=== PATIENT | male | born 1980 | race Caucasian/White ===

== ENCOUNTER 2016-09-28 10:00 | Emergency (ER) | payer SELFPAY ==
--- NOTE | 2016-09-28 10:26 | ER Document Report ---
HPI - HPI Pain Level: 5 Notes: Patient comes to the ED complaining of twisting injury to his right ankle that occurred yesterday. Since then he has been having lateral ankle pain and he has been unable to weight-bear. Patient states that he has been using ibuprofen and ice without any relief. The pain does not radiate. Staying off of his ankle helps with the pain. He has not noticed any obvious swelling or bruising. Denies any fever, chest pain, shortness breath, abdominal pain, dysuria, hematuria, muscle weakness/paralysis, or rash. Patient is a non- smoker. He does not take any meds daily. No medicine allergies. - CONSTITUTIONAL Notes: REVIEW OF SYSTEMS: CONSTITUTIONAL : Denies fever, chills, or sweats. Denies recent illness. CARDIOVASCULAR: Denies chest pain. Denies palpitations or racing or irregular heart beat. Denies ankle edema. RESPIRATORY: Denies cough, cold, or chest congestion. Denies shortness of breath, difficulty breathing, or wheezing. GASTROINTESTINAL: Denies abdominal pain or distention. Denies nausea, vomiting , or diarrhea. Denies blood in vomitus, stools, or per rectum. Denies black, tarry stools. Denies constipation. GENITOURINARY: Denies difficulty urinating, painful urination, burning, frequency, blood in urine, or discharge. MUSCULOSKELETAL: see hpi SKIN: Denies rash, lesions or sores. HEMATOLOGIC : Denies easy bruising or bleeding. NEUROLOGICAL: denies syncope/SALAZAR. ALL OTHER SYSTEMS REVIEWED AND NEGATIVE. Dictation was performed using [employer] voice recognition software - DERM Skin Color: Normal Past Medical History - Social History Smoking Status: Never Smoker Family History: Reviewed & Not Pertinent Patient has suicidal ideation: No Patient has homicidal ideation: No Renal/ Medical History: Denies: Hx Peritoneal Dialysis Past Surgical History: Reports: Hx Orthopedic Surgery - Left knee - Immunizations Hx Diphtheria, Pertussis, Tetanus Vaccination: Yes Vertical Provider Document - CONSTITUTIONAL Notes: PHYSICAL EXAMINATION: GENERAL: Well-appearing, well-nourished and in no acute distress. LUNGS: Breath sounds clear to auscultation bilaterally and equal. No wheezes rales or rhonchi. HEART: Regular rate and rhythm without murmurs, rubs, gallops. Musculoskeletal: (rt ankle): No obvious deformity, swelling, or ecchymosis noted. LROM to extension. Strength 4+/5 primarily due to discomfort. Ligamentous stable. + tenderness to palp of lateral malleolus/lateral ankle. Achilles intact. Caitlin neg. Extremities: No cyanosis, clubbing, or edema b/l. Peripheral pulses 2+. Capillary refill less than 3 seconds. NEUROLOGICAL: Normal sensory, motor exams PSYCH: Normal mood, normal affect. SKIN: Warm, Dry, normal turgor, no rashes or lesions noted. - INFECTION CONTROL TRAVEL OUTSIDE OF THE [place] IN LAST 30 DAYS: No - RESPIRATORY O2 Sat by Pulse Oximetry: 98 Course - Re-evaluation Re-evalutation: 09/28/16 12:11 Patient is an afebrile, well-hydrated, 36yo male who presents with the ED with a lateral rt ankle sprain based on H&P. XR unremarkable for any acute fx or dislocation. Toradol 15mg given IM today. Ankle stirrup placed. Crutches provided. Conservative measures for symptoms. Recheck with PCM in 2-3 days, consider consult with Ortho/Podiatry. Return to the ED with any worsening/ concerning symptoms as reviewed in discharge. Pt in agreement, but not happy he did not get a narcotic. Narcotics risks/benefits reviewed and advised that this injury does not warrant narcotics and NSAIDs with conservative measures will be the best thing for him. - Vital Signs Vital signs: Temp Pulse Resp BP Pulse Ox 97.4 F 97 20 140/93 H 98 09/28/16 10:09 09/28/16 10:09 09/28/16 10:09 09/28/16 10:09/28/16 10:09 Procedures - Immobilization Right Ankle Time completed: 12:00 Pre-Proc Neuro Vasc Exam: Normal Immobilizer type: Ankle stirrup Performed by: PCT Post-Proc Neuro Vasc Exam: Normal Discharge - Discharge Clinical Impression: Pain in lateral portion of right ankle Condition: Stable Disposition: HOME, SELF-CARE Instructions: Ankle Stirrup Splint ([facility]), Ice & Elevation ([facility]), Use of Crutches ([facility]), Sprained Ankle ([facility]) Additional Instructions: Rest, Ice, Compression, Elevation Use splint as directed Tylenol/ibuprofen as needed Light stretches daily Strength exercises as able Moist heat and massage may help F/u with your PCP in 2-3 days for a recheck Consider consult(s) with Orthopedics for ongoing/worsening symptoms Return to the ED with any worsening pain, swelling, numbness/tingling, muscle weakness, or development of fever, or any worsening symptoms that are concerning to you. Forms: Elevated Blood Pressure Referrals: [facility] [Provider Group] - Follow up as needed
--- NOTE | 2016-09-28 11:23 | RADIOLOGY REPORT (SQ) ---
EXAM DESCRIPTION: ANKLE RIGHT COMPLETE COMPLETED DATE/TIME: 09/28/2016 11:14 am REASON FOR STUDY: rt lateral ankle pain COMPARISON: None. NUMBER OF VIEWS: Three views. TECHNIQUE: AP, lateral, and oblique radiographic images acquired of the right ankle. LIMITATIONS: None. FINDINGS: MINERALIZATION: Normal. BONES: No acute fracture or dislocation. No worrisome bone lesions. JOINTS: Degenerative joint changes seen fibulotalar joint. SOFT TISSUES: There are calcifications about 2 cm below the tip of the fibula. OTHER: No other significant finding. IMPRESSION: 1. There is no acute abnormality. 2. There are lateral joint changes and calcifications suggesting prior injury. TECHNICAL DOCUMENTATION: JOB ID: [id number] [employer]- All Rights Reserved
[2016-09-28] MEDS ORDERED: KETOROLAC TROMETHAMINE INJ/PF 30 MG/1 ML SDV IM ONE (11:31)
[2016-09-28 11:50] VITALS: BP 132/72
== END 2016-09-28 11:53 | disposition home or self-care (01) ==
LOC: ER 10:00
DX: S93.401A Sprain of unspecified ligament of right ankle, initial encounter (principal); M25.571 Pain in right ankle and joints of right foot; X50.1XXA Overexertion from prolonged static or awkward postures, initial encounter
CPT/HCPCS: 99283; 96374; 73610; L1902; J1885

== ENCOUNTER 2018-03-19 18:03 | Emergency (ER) | payer SELFPAY ==
--- NOTE | 2018-03-19 18:51 | ER Document Report ---
ED Medical Screen (RME) - General Chief Complaint: Dizziness Stated Complaint: SHAKY/BLURRY VISION/HEADACHE Time Seen by Provider: 03/19/18 18:40 Mode of Arrival: Ambulatory Information source: Patient Notes: 37-year-old male presents with complaint of blurred vision, dizziness, shakiness and headache that have been ongoing for 1 week. Patient reports inability to sleep for several weeks. Denies any new medication, admits to stress secondary to the holidays. Does admit to occasional marijuana use. I have greeted and performed a rapid initial assessment of this patient. A comprehensive ED assessment and evaluation of the patient, analysis of test results and completion of medical decision making process we will be contacted by additional ED providers. PHYSICAL EXAMINATION: Vital signs reviewed-tachycardic, hypertensive GENERAL: Well-appearing, well-nourished and in no acute distress. LUNGS: No respiratory distress Musculoskeletal: Normal range of motion NEUROLOGICAL: Normal speech, normal gait. Alert and oriented x3 PSYCH: Normal mood, normal affect. SKIN: Warm, Dry, normal turgor, no rashes or lesions noted. TRAVEL OUTSIDE OF THE [place] IN LAST 30 DAYS: No - HPI Onset: Other Onset/Duration: Persistent Quality of pain: Throbbing Associated Symptoms: Dizzy/lightheaded, Headache Exacerbated by: Denies Relieved by: Denies Similar symptoms previously: No Recently seen / treated by doctor: No - Related Data Smoking: Non-smoker Frequency of alcohol use: None Drug Abuse: Marijuana Allergies/Adverse Reactions: No Known Allergies Allergy (Verified 03/19/18 18:26) Past Medical History Renal/ Medical History: Denies: Hx Peritoneal Dialysis Past Surgical History: Reports: Hx Orthopedic Surgery - Left knee - Immunizations Hx Diphtheria, Pertussis, Tetanus Vaccination: Yes Physical Exam - Vital signs Vitals: Temp Pulse Resp BP Pulse Ox 98.3 F 103 H 17 174/86 H 95 03/19/18 18:10 03/19/18 18:10 03/19/18 18:10 03/19/18 18:10 03/19/18 18:10 Course - Vital Signs Vital signs: Temp Pulse Resp BP Pulse Ox 98.3 F 103 H 17 174/86 H 95 03/19/18 18:10 03/19/18 18:10 03/19/18 18:10 03/19/18 18:10 03/19/18 18:10
[2018-03-19 19:11] LABS: ABSOLUTE BASOPHILS # (AUTO) 0.2 10^3/uL (0.0-0.2); ABSOLUTE EOSINOPHILS # (AUTO) 0.2 10^3/uL (0.0-0.6); ABSOLUTE LYMPHOCYTES (AUTO) 4.8 10^3/uL (0.5-4.7); ABSOLUTE MONOCYTES (AUTO) 1.5 10^3/uL (0.1-1.4); ABSOLUTE NEUT (AUTO) 8.3 10^3/uL (1.7-8.2); BASOPHILS % (AUTO) 1.1 % (0-2); EOSINOPHILS % (AUTO) 1.3 % (0-6); HEMATOCRIT 49.8 % (37.9-51.0); MEAN CORPUSCULAR HEMOGLOBIN 30.8 pg (27.0-33.4); MEAN CORPUSCULAR HGB CONC 34.2 g/dL (32.0-36.0); MEAN CORPUSCULAR VOLUME 90 fl (80-97); MONOCYTES % (AUTO) 9.9 % (3-13); PLATELET COUNT 383 10^3/uL (150-450); RED BLOOD COUNT 5.53 10^6/uL (4.35-5.55); RED CELL DISTRIBUTION WIDTH 13.5 % (11.5-14.0); SEGMENTED NEUTROPHILS % (AUTO) 55.7 % (42-78); TOTAL CELLS COUNTED % (AUTO) 100 %; WHITE BLOOD COUNT 14.9 10^3/uL (4.0-10.5)
[2018-03-19 19:21] LABS: APPEARANCE,URINE SLIGHTLY-CLOUDY; BILIRUBIN,URINE NEGATIVE (NEGATIVE); COLOR,URINE YELLOW; GLUCOSE, URINE NEGATIVE (NEGATIVE); KETONES,URINE NEGATIVE (NEGATIVE); LEUKOCYTE ESTERASE,URINE NEGATIVE (NEGATIVE); NITRITE,URINE NEGATIVE (NEGATIVE); PROTEIN,URINE NEGATIVE (NEGATIVE); URINE SPECIFIC GRAVITY 1.025
[2018-03-19] MEDS ORDERED: NORMAL SALINE 1000 ML 1,000 ML IV ONE (19:28)
[2018-03-19 19:30] LABS: URINE AMPHETAMINES SCREEN NEGATIVE; URINE BARBITURATES SCREEN NEGATIVE; URINE BENZODIAZEPINES SCREEN NEGATIVE; URINE COCAINE SCREEN NEGATIVE; URINE MARIJUANA (THC) SCREEN UNCONFIRMED POSITIVE; URINE METHADONE SCREEN NEGATIVE; URINE PHENCYCLIDINE SCREEN NEGATIVE
--- NOTE | 2018-03-19 19:31 | ER Document Report ---
ED General - General Chief Complaint: Dizziness Stated Complaint: SHAKY/BLURRY VISION/HEADACHE Time Seen by Provider: 03/19/18 18:40 Mode of Arrival: Ambulatory Information source: Patient Notes: This is a 37-year-old male with no medical problems who presents to the emergency with blurred vision, dizziness, shakiness and headache. Patient states he did have a GI illness last week with nausea, diarrhea, vomiting. He states that he has had dizziness and shakiness since then. He states that he got the headache starting yesterday. He denies any fever. He denies any photophobia. He states that the headache is actually gone right now. He does state that he has had difficulty sleeping for the past week. Patient states he is not been able to get good sleep the past 2 weeks: He states he has been under a lot of stress given the time of year. TRAVEL OUTSIDE OF THE [place] IN LAST 30 DAYS: No - HPI Onset: Last week Onset/Duration: Gradual Quality of pain: No pain Severity: None Pain Level: Denies Associated symptoms: denies: Chest pain, Fever, Shortness of breath Exacerbated by: Denies Relieved by: Denies Similar symptoms previously: No Recently seen / treated by doctor: No - Related Data Allergies/Adverse Reactions: No Known Allergies Allergy (Verified 03/19/18 18:26) Past Medical History - General Information source: Patient - Social History Smoking Status: Never Smoker Chew tobacco use (# tins/day): No Frequency of alcohol use: None Drug Abuse: Marijuana Family History: Reviewed & Not Pertinent Patient has suicidal ideation: No Patient has homicidal ideation: No Renal/ Medical History: Denies: Hx Peritoneal Dialysis Past Surgical History: Reports: Hx Orthopedic Surgery - Left knee - Immunizations Hx Diphtheria, Pertussis, Tetanus Vaccination: Yes Review of Systems - Review of Systems Constitutional: denies: Chills, Fever EENT: See HPI Cardiovascular: denies: Chest pain, Palpitations, Heart racing Respiratory: No symptoms reported Gastrointestinal: denies: Abdomen distended, Abdominal pain, Diarrhea Genitourinary: No symptoms reported Male Genitourinary: No symptoms reported Musculoskeletal: No symptoms reported Skin: No symptoms reported Hematologic/Lymphatic: No symptoms reported Neurological/Psychological: See HPI Physical Exam - Vital signs Vitals: Temp Pulse Resp BP Pulse Ox 98.3 F 103 H 17 174/86 H 95 03/19/18 18:10 03/19/18 18:10 03/19/18 18:10 03/19/18 18:10 03/19/18 18:10 Notes: Physical exam: GENERAL: Alert and oriented x3, no acute distress HEAD: Atraumatic, normocephalic. EYES: Pupils equal round and reactive to light, extraocular movements intact, sclera anicteric, conjunctiva are normal. ENT: TMs normal, nares patent, oropharynx clear without exudates. Moist mucous membranes. NECK: Normal range of motion, supple without obvious mass or JVD. She is neck is supple. LUNGS: Breath sounds clear to auscultation bilaterally and equal. No wheezes rales or rhonchi. HEART: Regular rate and rhythm without murmurs, rubs or gallops. ABDOMEN: Soft, normoactive bowel sounds. No tenderness to palpation. No guarding, no rebound. No masses appreciated. EXTREMITIES: Normal range of motion, no pitting or edema. No clubbing or cyanosis. NEUROLOGICAL: Cranial nerves II through XII grossly intact. She does have some horizontal nystagmus when looking to the left. Motor is 5/5, sensory is grossly intact, cerebellar (finger to nose) is good. Visual betancourt are normal. Patient denies diplopia. Normal speech, moving all extremities. There is no photophobia or neck stiffness. PSYCH: Normal mood, normal affect. SKIN: Warm, Dry, normal turgor, no rashes or lesions noted. - Notes Notes: Physical exam: GENERAL: he is alert and oriented x3, no acute distress HEAD: Atraumatic, normocephalic. EYES: Pupils equal round and reactive to light, extraocular movements intact, sclera anicteric, conjunctiva are normal. ENT: TMs normal, nares patent, oropharynx clear without exudates. Moist mucous membranes. NECK: Normal range of motion, supple without obvious mass or JVD. LUNGS: Breath sounds clear to auscultation bilaterally and equal. No wheezes rales or rhonchi. HEART: Regular rate and rhythm without murmurs, rubs or gallops. ABDOMEN: Soft, normoactive bowel sounds. No tenderness to palpation. No guarding, no rebound. No masses appreciated. EXTREMITIES: Normal range of motion, no pitting or edema. No clubbing or cyanosis. NEUROLOGICAL: Cranial nerves II through XII grossly intact. His visual betancourt are normal. He has slight horizontal nystagmus looking to the left. His motor is 5/5 upper and lower, sensory grossly intact, cerebellar (finger to nose) is good. normal speech, moving all extremities. PSYCH: Normal mood, normal affect. SKIN: Warm, Dry, normal turgor, no rashes or lesions noted. Course - Re-evaluation Re-evalutation: 03/19/18 23:23 The patient. He does state that he has been very stressed and is not sleeping well. He did have a GI issue a week ago with some diarrhea and some fever at that time. His white count is elevated tonight but there is no obvious signs of infection. I think a lot of his symptoms are from fatigue and lack of sleep. He was given IV fluids and repeat exam looks very good. I have talked to him about getting better sleep and following up with the [facility]. - Vital Signs Vital signs: Temp Pulse Resp BP Pulse Ox 98.5 F 70 16 141/94 H 96 03/19/18 23:39 03/19/18 23:39 03/19/18 23:39 03/19/18 23:39 03/19/18 23:39 - Laboratory Result Diagrams: 03/19/18 18:54 03/19/18 20:50 Laboratory results interpreted by me: 03/19/18 03/19/18 03/19/18 18:54 18:54 20:50 WBC 14.9 H Absolute Neutrophils 8.3 H Absolute Lymphocytes 4.8 H Absolute Monocytes 1.5 H Urine Urobilinogen 2.0 H Salicylates < 1.0 L Acetaminophen < 10 L - Diagnostic Test Radiology reviewed: Image reviewed, Reports reviewed - CT of the head shows no acute process. - EKG Interpretation by Me Rate: Normal Rhythm: NSR - EKG shows normal sinus rhythm with a ventricular rate of 64, no acute ST-T wave changes Discharge - Discharge Clinical Impression: Insomnia, Nystagmus, Pre-hypertension Condition: Stable Disposition: HOME, SELF-CARE Additional Instructions: As we discussed, the head CT look good today. There was no evidence of diabetes, your kidney function tests were good and your anemia studies were normal. I think your visual changes are from muscle fatigue because of lack of sleep. I want you to try using melatonin to see if it will help you go to sleep. Like you to follow-up with the medical clinic: [address] [phone] When you go: Bring a copy of today's lab tests with you. Prescriptions: Melatonin [Melatonin 1 mg Tablet] 1 mg PO QHS #14 tablet Forms: Elevated Blood Pressure
--- NOTE | 2018-03-19 20:42 | RADIOLOGY REPORT (SQ) ---
EXAM DESCRIPTION: CT HEAD WITHOUT COMPLETED DATE/TIME: 03/19/2018 8:30 pm REASON FOR STUDY: ham, dizziness COMPARISON: None. TECHNIQUE: Axial images acquired through the brain without intravenous contrast. Images reviewed wi th bone, brain and subdural windows. Additional sagittal and coronal reconstructions were generated. Images stored on PACS. All CT scanners at this facility use dose modulation, iterative reconstruction, and/or weight based d osing when appropriate to reduce radiation dose to as low as reasonably achievable (ALARA). [facility]: Dose Right [facility]: CareDose [facility]: Dose Right [facility]: Teradose 4D [facility]: Smart ARPU RADIATION DOSE: CT Rad equipment meets quality standard of care and radiation dose reduction techniq ues were employed. CTDIvol: 53.2 mGy. DLP: 937 mGy-cm. mGy. LIMITATIONS: None. FINDINGS: VENTRICLES: Normal size and contour. CEREBRUM: No masses. No hemorrhage. No midline shift. No evidence for acute infarction. Normal gra y/white matter differentiation. No areas of low density in the white matter. CEREBELLUM: No masses. No hemorrhage. No alteration of density. No evidence for acute infarction. EXTRAAXIAL SPACES: No fluid collections. No masses. ORBITS AND GLOBE: No intra- or extraconal masses. Normal contour of globe without masses. CALVARIUM: No fracture. PARANASAL SINUSES: No fluid or mucosal thickening. SOFT TISSUES: No mass or hematoma. OTHER: No other significant finding. IMPRESSION: NORMAL BRAIN CT WITHOUT CONTRAST. EVIDENCE OF ACUTE STROKE: NO. COMMENT: Quality ID # [id number]: Final reports with documentation of one or more dose reduction techniques (e.g., Automated exposure control, adjustment of the mA and/or kV according to patient size, use of iterative reconstruction technique) TECHNICAL DOCUMENTATION: JOB ID: [id number] [employer]- All Rights Reserved Reading location - IP/workstation name: [email or web address]
[2018-03-19 21:13] LABS: ALANINE AMINOTRANSFERASE 49 U/L (21-72); ALBUMIN 4.5 g/dL (3.5-5.0); ALKALINE PHOSPHATASE 68 U/L (38-126); ANION GAP 9 (5-19); ASPARTATE AMINO TRANSFERASE 46 U/L (17-59); BILIRUBIN,DIRECT 0.3 mg/dL (0.0-0.4); BILIRUBIN,TOTAL 1.2 mg/dL (0.2-1.3); BLOOD UREA NITROGEN 12 mg/dL (7-20); CALCIUM 9.5 mg/dL (8.4-10.2); CARBON DIOXIDE 29 mmol/L (22-30); CHLORIDE 102 mmol/L (98-107); GLUCOSE 101 mg/dL (75-110); POTASSIUM 3.8 mmol/L (3.6-5.0); SODIUM 140.4 mmol/L (137-145); TOTAL PROTEIN 7.9 g/dL (6.3-8.2)
[2018-03-19 21:15] LABS: ACETAMINOPHEN < 10 ug/mL (10-30); ALCOHOL < 10 mg/dL (NONE DETECTED); SALICYLATE < 1.0 mg/dL (2.0-20.0)
[2018-03-19] MEDS ORDERED: ALPRAZOLAM 0.5 MG TABLET PO ONE (23:19)
[2018-03-19 23:46] VITALS: BP 141/94
--- NOTE | 2018-03-20 07:41 | EKG REPORT ---
SEVERITY:- NORMAL ECG - SINUS RHYTHM : Confirmed by: Angelo Landaverde MD 20-Mar-2018 07:40:45
== END 2018-03-19 23:52 | disposition home or self-care (01) ==
LOC: ER 18:03
DX: G47.00 Insomnia, unspecified (principal); H55.00 Unspecified nystagmus; R03.0 Elevated blood-pressure reading, without diagnosis of hypertension; H53.8 Other visual disturbances; R42 Dizziness and giddiness; R51 Headache
CPT/HCPCS: 93005; 99284; 96360; 36415; 80307 ×4; 85025; 80053; 81001; 70450; 93010; J7030